=== PATIENT | male | born 1985 | race African-American/Black ===

== ENCOUNTER 2022-06-13 16:05 | Outpatient (CLI) | payer SELFPAY | END 2022-06-13 16:06 | disposition home or self-care (01) | LOC: AMB 06-23 20:13 | PROVIDERS: Visit Provider Emergency Medicine Emergency Medical Services | DX: S89.91XA Unspecified injury of right lower leg, initial encounter (principal); S89.92XA Unspecified injury of left lower leg, initial encounter; V49.3XXA Car occupant (driver) (passenger) injured in unspecified nontraffic accident, initial encounter; Y92.410 Unspecified street and highway as the place of occurrence of the external cause | CPT/HCPCS: A0425; A0429 ==

== ENCOUNTER 2022-06-13 16:44 | Emergency (ER) | payer SELFPAY ==
[2022-06-13 16:47] VITALS: BP 130/73; PULSE 80; RESP 14; TEMP 36.8; O2SAT 97; BMI 28.9
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
== END 2022-06-13 19:00 | disposition home or self-care (01) ==
PROVIDERS: Emergency Provider Emergency Medicine Emergency Medical Services
DX: M25.562 Pain in left knee (principal); M25.561 Pain in right knee; V43.53XA Car driver injured in collision with pick-up truck in traffic accident, initial encounter
CPT/HCPCS: 73560; 99284; 99291; G0390